=== PATIENT | female | born 1950 | race Hispanic/Latino ===

== ENCOUNTER → 2018-05-11 | Outpatient (CLI) | payer MEDICARE, OTHER ==
--- NOTE | 2018-05-11 16:43 | Diagnostic Imaging Report ---
EXAM: DXA BONE DENSITY INDICATIONS: Osteoporsis COMPARISON: None. FINDINGS: Proximal left femur bone mineral density (BMD) (g/cm2):0.726 Femur T-score (standard deviation relative to young adult mean BMD): -1.8 Femur Z-score (standard deviation relative to age-matched control group):-0.5 Lumbar bone mineral density (BMD) (g/cm2):1.015 Lumbar T-score (standard deviation relative to young adult mean BMD): -0.3 Lumbar Z-score (standard deviation relative to age-matched control group):1.6 Change since prior exam (%): Femur:Not applicable. Spine:Not applicable. Change since oldest prior exam (%): Femur:Not applicable. Spine:Not applicable. CONCLUSION: 1. Bone mineral density in the left femur is classified as osteopenia. Fracture risk is increased. 2. Bone mineral density in the spine is classified as normal. Fracture risk is not increased. World Health Organization Classification: *The Z-score is provided for informational purposes. The T-score is preferable for clinical decisions. When comparing exams, a change of >4% is considered statistically significant. SUGGESTED RECOMMENDATIONS: Normal & Osteopenia:Consideration should be given to use of calcium supplementation, daily multiple vitamins and adequate exercise, as preventive measures against osteoporosis, if clinically indicated. Osteoporosis & Severe Osteoporosis:In addition to the above, consideration should be given to medical therapy against osteoporosis, if clinically indicated. Richard Bear D.O. Dictated by: Richard Bear D.O. on 05/11/2018 at 16:55 Electronically approved by: Richard Bear D.O. on 05/11/2018 at 16:55
== END ==
LOC: MAMMO 13:23
PROVIDERS: ATTEND Family Medicine
DX: Z12.31 Encounter for screening mammogram for malignant neoplasm of breast (principal); M81.0 Age-related osteoporosis without current pathological fracture
CPT/HCPCS: 77067; 77080

== ENCOUNTER → 2020-08-08 | Outpatient (CLI) | payer MEDICARE, OTHER | LOC: MAMMO 13:46 | PROVIDERS: ATTEND Family Medicine | DX: Z12.31 Encounter for screening mammogram for malignant neoplasm of breast (principal); M81.0 Age-related osteoporosis without current pathological fracture | CPT/HCPCS: 77067; 77080 ==